=== PATIENT | female | born 1955 ===

== ENCOUNTER 2016-09-07 08:19 | Day surgery (SDC) | payer OTHER ==
[2016-09-07] MEDS ORDERED: Lactated Ringer's 500 ML IV ONE (09:06)
[2016-09-07 10:14] VITALS: O2SAT 100
[2016-09-07] MEDS ORDERED: Propofol 10 mg/ml Inj (20 ML) ONE (10:30)
[2016-09-07 11:15] VITALS: RESP 17; TEMP 97
[2016-09-07 11:34] VITALS: BP 117/65; PULSE 68
== END 2016-09-07 11:40 | disposition home or self-care (01) ==
LOC: H.ENDO 08:19
PROVIDERS: ATTEND Internal Medicine Gastroenterology
DX: Z12.11 Encounter for screening for malignant neoplasm of colon (principal); E78.5 Hyperlipidemia, unspecified; I10 Essential (primary) hypertension; M19.90 Unspecified osteoarthritis, unspecified site; K57.30 Diverticulosis of large intestine without perforation or abscess without bleeding; K64.8 Other hemorrhoids; R10.13 Epigastric pain; K28.9 Gastrojejunal ulcer, unspecified as acute or chronic, without hemorrhage or perforation

== ENCOUNTER 2017-10-20 21:32 | Observation (INO) | payer MEDICAID, OTHER ==
[2017-10-20 21:41] VITALS: BMI 34.5
[2017-10-20] MEDS ORDERED: Sodium Chloride 0.9% 1,000 ML IV SCH (22:30)
[2017-10-20 22:41] LABS: BASO % 0.8 % (0.0-2.0); BLOOD UREA NITROGEN 16 mg/dl (7-17); CALCIUM 9.2 mg/dL (8.4-10.2); EOS # 0.2 K/uL (0.0-0.7); EOS % 3.5 % (0.0-4.0); GFR AFRICAN-AMERICAN > 60; GFR NON-AFRICAN AMERICAN > 60; HEMOGLOBIN 12.7 g/dL (12.0-16.0); LYMPH # 2.5 K/uL (1.0-4.3); LYMPH % 48.1 % (20.0-40.0); MEAN CELL VOLUME 101.7 fl (81.0-99.0); MEAN CORPUSCULAR HEMOGLOBIN 33.8 pg (27.0-31.0); MEAN CORPUSCULAR HGB CONC 33.2 g/dL (33.0-37.0); MEAN PLATELET VOLUME 7.2 fl (7.2-11.7); MONO # 0.7 K/uL (0.0-0.8); MONO % 12.8 % (0.0-10.0); NEUT # 1.8 K/uL (1.8-7.0); NEUT % 34.8 % (50.0-75.0); RBC 3.76 Mil/uL (3.80-5.20); RED CELL DISTRIBUTION WIDTH 13.5 % (11.5-14.5); WHITE BLOOD COUNT 5.2 K/uL (4.8-10.8)
--- NOTE | 2017-10-20 22:53 | ED PDOC ---
HPI: Headache Time Seen by Provider: 10/20/17 21:59 Chief Complaint (Nursing): Headache History Per: Patient History/Exam Limitations: no limitations Onset/Duration Of Symptoms: Days Current Symptoms Are (Timing): Still Present Severity: Moderate Quality: Pressure Associated Symptoms: Photophobia Additional Complaint(s): Hx of DM, HTN presenting with headache and dizziness x 2 days, describes headache as pressure, nonthunderclap, gradually worsening, states that whenever she moves her head in any direction, she gets acutely dizzy and headache worsens. States palpitations, but denies nausea, vomiting, fevers, neck stiffness, chest pain, or shortness of breath. PMD: Kacey Guy (using MARIJA Cheng) Past Medical History Reviewed: Historical Data, Nursing Documentation, Vital Signs Vital Signs: Last Vital Signs Temp 98.4 F 10/20/17 21:41 Pulse 98 H 10/20/17 21:41 Resp 16 10/20/17 21:41 BP 123/77 10/20/17 21:41 Pulse Ox 99 10/20/17 21:41 - Medical History PMH: Arthritis, Back Problems, Diabetes (type II), Gall Bladder Disease, HTN, Rheumatoid Arthritis - Surgical History Surgical History: Back Surgery (x 3), Cholecystectomy - Family History Family History: States: Unknown Family Hx - Home Medications Home Medications: Ambulatory Orders Medication Instructions Recorded amLODIPine [Norvasc] 1 tab PO DAILY 09/07/16 - Allergies Allergies/Adverse Reactions: Allergies Allergy/AdvReac Type Severity Reaction Status Date / Time adhesive tape Allergy RASH Verified 10/20/17 21:40 iodine Allergy RASH Verified 10/20/17 21:40 Review of Systems ROS Statement: Except As Marked, All Systems Reviewed And Found Negative Neurological: Positive for: Headache, Dizziness Physical Exam - Reviewed Nursing Documentation Reviewed: Yes Vital Signs Reviewed: Yes - Physical Exam Appears: Positive for: Well, Non-toxic, No Acute Distress, Uncomfortable Head Exam: Positive for: ATRAUMATIC, NORMAL INSPECTION, NORMOCEPHALIC Skin: Positive for: Normal Color, Warm, DRY Eye Exam: Positive for: EOMI, Normal appearance, PERRL ENT: Positive for: Normal ENT Inspection Neck: Positive for: Normal, Painless ROM Cardiovascular/Chest: Positive for: Regular Rate, Rhythm Respiratory: Positive for: CNT, Normal Breath Sounds Gastrointestinal/Abdominal: Positive for: Normal Exam, Soft Back: Positive for: Normal Inspection Extremity: Positive for: Normal ROM Neurologic/Psych: Positive for: Alert, tailor women's garment alteration II-XII, Oriented, Cerebellar Tests ( Normal), Gait (Normal). Negative for: Motor/Sensory Deficits, Aphasia, Facial Droop - Laboratory Results Result Diagrams: 10/20/17 22:23 10/20/17 22:23 - ECG ECG Rhythm: Positive for: Normal QRS, Sinus Rhythm O2 Sat by Pulse Oximetry: 99 Pulse Ox Interpretation: Normal Medical Decision Making Medical Decision Makin:30PM A/P: Hx of HTN, DM presenting with headache and dizziness -patient well appearing, slight discomfort with lights on, better with lights off, normal vitals -patient's symptoms consistent with migraine headache, vertigo, however given positional nature of headache will get head CT to r/o mass -will get labs, ekg, and provide relief with medication -will reeval 1:13AM Patient is starting to improve, however patient's EKG shows new TWI from prior EKG, will admit to Tele Obs for palpitations, dizziness, and EKG changes Disposition - Clinical Impression Clinical Impression: Dizziness, Palpitations, Acute electrocardiogram changes - Patient ED Disposition Is Patient to be Admitted: Yes - Disposition Disposition Time: 01:17 Condition: FAIR Forms: [employer] (Vietnamese)
--- NOTE | 2017-10-21 00:26 | CT ---
EXAM: CT Head Without Intravenous Contrast EXAM DATE/TIME: 10/20/2017 10:18 PM CLINICAL HISTORY: 62 years old, female; Pain; Headache; Additional info: Headache, dizziness TECHNIQUE: Axial computed tomography images of the head/brain without intravenous contrast. All CT scans at this facility use one or more dose reduction techniques, viz.: automated exposure control; ma/kV adjustment per patient size (including targeted exams where dose is matched to indication; i.e. head); or iterative reconstruction technique. Coronal and sagittal reformatted images were created and reviewed. COMPARISON: CT - HEAD W/O CONTRAST 2016-07-14 15:58 FINDINGS: Brain and ventricles: Ventricles are normal in size and configuration. There is no midline shift. There are no intra-axial or extra-axial mass lesions or areas of hemorrhage. There are no abnormal fluid collections. Hoang-white differentiation is maintained. Bones: Cranial vault is intact. Soft tissues: unremarkable Sinuses: There is no acute sinusitis. Ears and mastoids: Middle ears are unremarkable. Mastoids are poorly pneumatized. Orbits: Orbital contents are unremarkable. IMPRESSION: No acute intracranial abnormality
--- NOTE | 2017-10-21 01:36 | CP.PCM.HP ---
History of Present Illness - History of Present Illness History of Present Illness: CC: Palpitations, dizziness HPI: This is a 62 y/o female with HTN, DM2, and ?RA who comes in with c/o intermittent dizziness, headaches, palpitations, and chest pressure. States symptoms have been going on for past few weeks, but worsening. The dizziness and headaches seem to be worsened when they are present when she moves her head in any direction. The MORENO symptoms are accompanied by a sense of chest pressure sometimes, as well as palpitations, but no radiation, and no SOB. Denies f/c/n/v /d. Patient ambulates with walker. PCP: Malena ROS: 14 systems reviewed, negative other than HPI MHx: HTN, DM2, and RA SHx: Gastric bypass, GB, multiple back surgeries, cataracts Allergies: Iodinated dyes, adhesive tape Medications: Per med rec Family Hx: Unaware of any significant family Hx Social Hx: Lives by herself, no tobacco, no EtOH Surrogate Dec Mkr: Pending Present on Admission - Present on Admission Any Indicators Present on Admission: No Past Patient History - Past Medical History & Family History Past Medical History?: Yes - Past Social History Smoking Status: Never Smoked - CARDIAC Hx Hypertension: Yes - ENDOCRINE/METABOLIC Hx Diabetes Mellitus Type 2: Yes - MUSCULOSKELETAL/RHEUMATOLOGICAL Hx Arthritis: Yes Hx Rheumatoid Arthritis: Yes - GASTROINTESTINAL Hx Gall Bladder Disease: Yes - PSYCHIATRIC Hx Substance Use: No - SURGICAL HISTORY Hx Cholecystectomy: Yes - ANESTHESIA Hx Anesthesia: Yes Hx Anesthesia Reactions: No Hx Malignant Hyperthermia: No Meds Allergies/Adverse Reactions: Allergies Allergy/AdvReac Type Severity Reaction Status Date / Time adhesive tape Allergy RASH Verified 10/20/17 21:40 iodine Allergy RASH Verified 10/20/17 21:40 Physical Exam - Constitutional Appears: No Acute Distress - Head Exam Head Exam: ATRAUMATIC, NORMOCEPHALIC - Eye Exam Eye Exam: EOMI, PERRL - ENT Exam ENT Exam: Mucous Membranes Moist - Neck Exam Neck exam: Positive for: Full Rom - Respiratory Exam Respiratory Exam: Clear to Auscultation Bilateral, NORMAL BREATHING PATTERN - Cardiovascular Exam Cardiovascular Exam: REGULAR RHYTHM, +S1, +S2 - GI/Abdominal Exam GI & Abdominal Exam: Normal Bowel Sounds, Soft - Extremities Exam Extremities exam: Positive for: full ROM, normal inspection - Neurological Exam Neurological exam: Alert, CN II-XII Intact, Oriented x3 - Psychiatric Exam Psychiatric exam: Normal Affect, Normal Mood - Skin Skin Exam: Dry, Warm Results - Vital Signs Recent Vital Signs: Last Vital Signs Temp 98.4 F 10/20/17 21:41 Pulse 98 H 10/20/17 21:41 Resp 16 10/20/17 21:41 BP 123/77 10/20/17 21:41 Pulse Ox 99 10/21/17 01:17 - Labs Result Diagrams: 10/20/17 22:23 10/20/17 22:23 Labs: Laboratory Results - last 24 hr 10/20/17 10/20/17 10/20/17 22:21 22:23 22:23 WBC 5.2 RBC 3.76 L Hgb 12.7 Hct 38.3 MCV 101.7 H D MCH 33.8 H MCHC 33.2 RDW 13.5 Plt Count 283 MPV 7.2 Neut % (Auto) 34.8 L Lymph % (Auto) 48.1 H [place] % (Auto) 12.8 H Eos % (Auto) 3.5 Baso % (Auto) 0.8 Neut # (Auto) 1.8 Lymph # (Auto) 2.5 [place] # (Auto) 0.7 Eos # (Auto) 0.2 Baso # (Auto) 0.0 Sodium 139 Potassium 4.1 Chloride 102 Carbon Dioxide 27 Anion Gap 14 BUN 16 Creatinine 0.9 Est GFR ( Amer) > 60 Est GFR (Non-Af Amer) > 60 POC Glucose (mg/dL) 77 Random Glucose 83 Calcium 9.2 Troponin I < 0.0120 - EKG Data EKG Interpreted by: Myself EKG shows normal: Sinus rhythm Rate: Normal - EKG Data EKG comments: New TWI noted in several leads - Imaging and Cardiology Chest x-ray Status: Pending CT scan - head Status: Image reviewed by me, Report reviewed by me (no acute findings) Assessment & Plan (1) DM2 (diabetes mellitus, type 2) Assessment and Plan: 62 y/o female with HTN and DM2 among other medical conditions who presents with CP, palpitations, dizziness. 1) CP/Palpitations/dizziness -Tele obs -Serial trops -Check AM AKG -Check Echo -- for EF, WMA, valvular abnormalities -Carotid dopplers -Lipid panel -ASA 325 mg PO daily 2) DM2 -Accucheck ACHS -SSI -DM2 diet 3) HTN -- cont home medications 4) DVT PPx- SQ Lovenox Status: Acute (2) Chest pain Status: Acute (3) Palpitations Status: Acute (4) HTN (hypertension) Status: Acute (5) DVT prophylaxis Status: Acute
[2017-10-21 03:12] VITALS: RESP 18
[2017-10-21] MEDS: Insulin Lispro (humaLOG) 100 Units/ml Inj SC SCH ×2 (06:48→12:55)
[2017-10-21 08:03] LABS: HDL CHOLESTEROL 50 MG/DL (30-70)
[2017-10-21 08:14] VITALS: O2SAT 100
[2017-10-21 08:14] LABS: LDL CHOLESTEROL 88 mg/dL (0-129)
--- NOTE | 2017-10-21 08:15 | RAD ---
PROCEDURE: CHEST RADIOGRAPH, 1 VIEW HISTORY: CP, palpitations COMPARISON: Chest radiographs 04/28/2014. FINDINGS: LUNGS: Crowding medial basilar linear atelectasis. PLEURA: No pneumothorax or pleural fluid seen. CARDIOVASCULAR: Normal. OSSEOUS STRUCTURES: Interval apparent epidural stimulator noted at the mid to inferior thoracic spine region. VISUALIZED UPPER ABDOMEN: Normal. OTHER FINDINGS: None. IMPRESSION: Crowding the medial basilar bronchovascular markings right base and linear.
[2017-10-21] MEDS ORDERED: Enoxaparin 40 mg Syringe SC SCH (09:00)
--- NOTE | 2017-10-21 11:04 | CP.PCM.DIS ---
Provider - Provider Date of Admission: 10/21/17 01:13 Attending physician: Leticia Jimenez MD Primary care physician: Maxine Cheng Consults: none Time Spent in preparation of Discharge (in minutes): 15 Hospital Course - Lab Results Lab Results: Most Recent Lab Values WBC 5.2 K/uL (4.8-10.8) 10/20/17 22: RBC 3.76 Mil/uL (3.80-5.20) L 10/20/17 22: Hgb 12.7 g/dL (12.0-16.0) 10/20/17 22: Hct 38.3 % (34.0-47.0) 10/20/17 22: MCV 101.7 fl (81.0-99.0) H D 10/20/17 22: MCH 33.8 pg (27.0-31.0) H 10/20/17: MCHC 33.2 g/dL (33.0-37.0) 10/20/17: RDW 13.5 % (11.5-14.5) 10/20/17: Plt Count 283 K/uL (130-400) 10/20/17 22: MPV 7.2 fl (7.2-11.7) 10/20/17 22: Neut % (Auto) 34.8 % (50.0-75.0) L 10/20/17: Lymph % (Auto) 48.1 % (20.0-40.0) H 10/20/17: [place] % (Auto) 12.8 % (0.0-10.0) H 10/20/17 22: Eos % (Auto) 3.5 % (0.0-4.0) 10/20/17: Baso % (Auto) 0.8 % (0.0-2.0) 10/20/17: Neut # (Auto) 1.8 K/uL (1.8-7.0) 10/20/17: Lymph # (Auto) 2.5 K/uL (1.0-4.3) 10/20/17: [place] # (Auto) 0.7 K/uL (0.0-0.8) 06/16/18 22:23 Eos # (Auto) 0.2 K/uL (0.0-0.7) 10/20/17 22:23 Baso # (Auto) 0.0 K/uL (0.0-0.2) 10/20/17 22:23 Sodium 139 mmol/l (132-148) 10/20/17 22:23 Potassium 4.1 MMOL/L (3.6-5.0) 10/20/17 22:23 Chloride 102 mmol/L (98-107) 10/20/17 22:23 Carbon Dioxide 27 mmol/L (22-30) 10/20/17 22:23 Anion Gap 14 (10-20) 10/20/17 22:23 BUN 16 mg/dl (7-17) 10/20/17 22:23 Creatinine 0.9 mg/dl (0.7-1.2) 10/20/17 22:23 Est GFR ( Amer) > 60 10/20/17 22:23 Est GFR (Non-Af Amer) > 60 10/20/17 22:23 POC Glucose (mg/dL) 86 mg/dL (65-110) 10/21/17 05:17 Random Glucose 83 mg/dL (65-105) 10/20/17 22:23 Calcium 9.2 mg/dL (8.4-10.2) 10/20/17 22:23 Troponin I < 0.0120 ng/mL (0.00-0.120) 10/21/17 06:20 Triglycerides 99 mg/DL (0-149) 10/21/17 06:20 Cholesterol 179 mg/dL (0-199) 10/21/17 06:20 LDL Cholesterol Direct 88 mg/dL (0-129) 10/21/17 06:20 HDL Cholesterol 50 MG/DL (30-70) 10/21/17 06:20 TSH 3rd Generation 3.56 mIU/ML (0.46-4.68) 10/21/17 06:20 - Hospital Course Hospital Course: 62 y/o female with PMHx of DM, HTN presenting with headache and dizziness x 2 days, describes headache as pressure, nonthunderclap, gradually worsening, States that whenever she moves her head in any direction, she gets acutely dizzy and headache worsens. States palpitations, but denies nausea, vomiting, fevers, neck stiffness, chest pain, or shortness of breath.Denies any visual changes. Patient was placed under observation in telemetry for chest pain and palpitations. EKG showed NSR with right axis deviation, no ST - T wave changes . Troponin were cycled and were all normal ruling out ACS TSH - wnl livestock caretaker showed no arrythmias HR ranging 92-64 carotid Doppler showed tortuous ICA but no stenosis. She was given Meclizine for her vertigo. Most likely vertigo is due to benign positional vertigo . Will discharge patient home on Meclizine PRN. Advise to follow up with her PMD and neurologist as outpatient for possible benign positional vertigo management and migraine headaches Patient is hemodynamically stable, afebrile Will discharge home 1. Chest pain , ACS ruled out 2.suspected Anxiety with migraine MORENO -- palpitations and MORENO . Follow up with neurologist as outpatient. Noted history of migraine in prior hospital encounters admissions 3. Vertigo - stated Meclizine 4.DM2-chronic 5. HTN- chronic 6.Obesity BMI 34 7. Chronic back pain secondary to herniated discs with gait abnormality -- walks with walker . On pain medications at home Discharge Exam - Head Exam Head Exam: ATRAUMATIC, NORMOCEPHALIC - Eye Exam Eye Exam: EOMI, PERRL Pupil Exam: NORMAL ACCOMODATION - ENT Exam ENT Exam: Mucous Membranes Moist, Normal Exam - Neck Exam Neck exam: Full Rom, Normal Inspection - Respiratory Exam Respiratory Exam: Clear to PA & Lateral, NORMAL BREATHING PATTERN. absent: Rhonchi, Wheezes, Respiratory Distress - Cardiovascular Exam Cardiovascular Exam: REGULAR RHYTHM, RRR, +S1, +S2. absent: JVD - GI/Abdominal Exam GI & Abdominal Exam: Normal Bowel Sounds, Soft. absent: Distended, Guarding, Rebound, Tenderness - Rectal Exam Rectal Exam: Deferred - Extremities Exam Extremities exam: normal capillary refill, normal inspection, pedal pulses present - Back Exam Back exam: NORMAL INSPECTION - Neurological Exam Neurological exam: Alert, CN II-XII Intact, Oriented x3 - Psychiatric Exam Psychiatric exam: Normal Affect - Skin Skin Exam: Dry, Normal Color, Warm Discharge Plan - Discharge Medications Prescriptions: Meclizine [Meclizine*] 25 mg PO Q6 #30 tab - Follow Up Plan Condition: STABLE Disposition: HOME/ ROUTINE Patient education suggested?: Yes Instructions: Vertigo (a Type of Dizziness) (DC), Dizziness, Nonvertigo, (DC), Headache, Adult (DC), Migraine Headache (DC) Referrals: Maxine Cheng RN, BE[facility]ICKER [Advanced Practice Nurse] -
[2017-10-21 12:35] VITALS: BP 125/86; PULSE 71; TEMP 97.9
--- NOTE | 2017-10-21 17:12 | US ---
PROCEDURE: Duplex ultrasound of the carotid and vertebral arteries. HISTORY: dizziness COMPARISON: None available. TECHNIQUE: Grayscale and duplex Doppler evaluation of the cervical carotid and vertebral arteries were performed. The common carotid, carotid bifurcations and cervical ICA and proximal ECA were evaluated. The vertebral arteries were evaluated for gross patency and direction. FINDINGS: RIGHT CAROTID ARTERIES: Common Carotid Artery: Normal. Maximal flow velocity of 84.6 cm/s. Carotid Bifurcation: [id number] atherosclerotic plaques identified at the carotid bulb exit. Internal Carotid Artery:Normal. Maximal flow velocity of 79.5 cm/s. External Carotid Artery (proximal branches): Normal. Maximal flow velocity of 55.0 cm/s. ICA/CCA Ratio: 2.5 LEFT CAROTID ARTERIES: Common Carotid Artery: Normal. Maximal flow velocity of 61.1 cm/s. Carotid Bifurcation: Normal. Internal Carotid Artery:Normal. Maximal flow velocity of 102.4 cm/s. External Carotid Artery (proximal branches): Normal. Maximal flow velocity of 43.6 cm/s. ICA/CCA Ratio: 1.4 VERTEBRAL ARTERIES: Right Vertebral Artery: Patent. Antegrade flow. Left Vertebral Artery: Patent. Antegrade flow. OTHER FINDINGS: Mild bilateral neck lymphadenopathy in the bilateral jugulodigastric spaces with a 2.2 by a 0.6 jugulodigastriclymph nodes identified and a right 1.6 x 0.6 cm right jugulodigastric lymph node. IMPRESSION: No significant stenosis bilateral common and internal carotid arteries as imaged. Limited atherosclerotic plaques identified at the distal right common carotid artery including the bulb.
--- NOTE | 2017-10-22 11:35 | CARD ---
APPROVED REPORT EKG Measurement Heart [id number] IN 166P [id number] <Conclusion> Normal sinus rhythm Right superior axis deviation Abnormal ECG
== END 2017-10-21 14:40 | disposition home or self-care (01) ==
LOC: H.ER 21:32 → H.ERHOLD 10-21 01:13 → H.TEL 10-21 03:00
PROVIDERS: ADMIT Internal Medicine; ATTEND Internal Medicine
DX: R07.9 Chest pain, unspecified (principal); G43.909 Migraine, unspecified, not intractable, without status migrainosus; R00.2 Palpitations; R42 Dizziness and giddiness; E11.36 Type 2 diabetes mellitus with diabetic cataract; I10 Essential (primary) hypertension; Z98.84 Bariatric surgery status; E66.9 Obesity, unspecified; Z68.34 Body mass index [BMI] 34.0-34.9, adult; G89.29 Other chronic pain; R26.9 Unspecified abnormalities of gait and mobility; Z91.041 Radiographic dye allergy status; M19.90 Unspecified osteoarthritis, unspecified site
CPT/HCPCS: 36415; 70450; 71045; 80048; 80061; 82948; 84443; 84484; 85025; 93005; 93880; 99285; G0378; J1650; J2765; J7030